=== PATIENT | female | born 1975 | race Caucasian/White ===

== ENCOUNTER 2017-04-03 10:38 | Emergency (ER) | payer BC ==
[~2017-04-03] VITALS: Ht 157.5 cm; Wt 129.9 kg
[2017-04-03 10:54] VITALS: BP 100/67
--- NOTE | 2017-04-03 11:27 | NUR ---
PATIENT AMBUALTED TO BED 3.
--- NOTE | 2017-04-03 11:39 | NUR ---
42/F PRESENT TO ER C/O N/V/D x 4 DAYS. PAIN 8/10 SHARP CONTINOUS NON-RADIATING. PT STATES SHE WAS SEEN IN [facility] ER YESTERDAY AM. HX: NONE MEDS: NONE; DENIES DIARRHEA; SKIN IS PINK/WARM/DRY; AAOX4 WITH EVEN AND STEADY GAIT; LUNGS CLEAR BL; HR EVEN AND REGULAR; PT DENIES ANY FEVER, CP, SOB, OR COUGH AT THIS TIME; PATIENT STATES PAIN OF 8/10 AT THIS TIME; VSS; PATIENT POSITIONED FOR COMFORT; HOB ELEVATED; BEDRAILS UP X2; BED DOWN. ER MD MADE AWARE OF PT STATUS.
[2017-04-03] MEDS ORDERED: oxyCODONE/APAP 5/325 MG 1 TAB TAB PO ONE (11:45)
[2017-04-03] MEDS ORDERED: SUMAtriptan 6 MG/0.5 ML VIAL SUBQ ONE (11:45)
[2017-04-03 12:57] VITALS: BP 123/74
--- NOTE | 2017-04-03 12:57 | NUR ---
Patient discharged with v/s stable. Written and verbal after care instructions given and explained. Patient verbalized understanding. Ambulatory with steady gait. All questions addressed prior to discharge. Advised to follow up with PMD.
== END 2017-04-03 12:57 | disposition home or self-care (01) ==
LOC: MED 10:38
DX: K52.9 Noninfective gastroenteritis and colitis, unspecified (principal); G43.909 Migraine, unspecified, not intractable, without status migrainosus
CPT/HCPCS: 96372; 99283; J3030

== ENCOUNTER 2017-04-05 00:50 | Inpatient (IN) | payer BC ==
[~2017-04-05] VITALS: Ht 157.5 cm; Wt 129.3 kg
[2017-04-05 00:58] VITALS: BP 119/69
--- NOTE | 2017-04-05 03:07 | NUR ---
42Y F BIB FAMILY C/O MID AB PAIN RADIATING TO THE PELVIC X 5 DAYS. PT STATES SHE WAS SEEN HERE AT [place] ON MONDAY AND MONDAY OF THIS PAST WEEK AND RECEIVED PAIN MED AND ANTI DIARRRHEAL MED BUT GOT NO RELIEF. PT STATES SHE IS STILL HAVING DIARRHEA. PT DENIES ANY NAUSEA OR VOMITING. PT AAOX4.
[2017-04-05] MEDS ORDERED: MORPHINE SULFATE 4 MG/ML SYR IVP ONE (03:20)
[2017-04-05] MEDS ORDERED: ONDANSETRON 4 MG/2 ML VIAL IVP ONE (03:20)
[2017-04-05] MEDS ORDERED: NACL 0.9% 1,000 ML IV ONE (03:20)
[2017-04-05] MEDS ORDERED: LEVOFLOXACIN 750 MG/D5W PREMIX 150 ML IV ONE (03:20)
[2017-04-05 03:37] LABS: APPEARANCE,URINE SL CLOUDY (CLEAR); BILIRUBIN,URINE NEGATIVE (NEGATIVE); BLOOD, URINE NEGATIVE (NEGATIVE); COLOR,URINE YELLOW (YELLOW); LEUKOCYTE ESTERASE ,URINE NEGATIVE (NEGATIVE); NITRITE, URINE NEGATIVE (NEGATIVE); UGLUCOSE 2+ (NEGATIVE)
[2017-04-05 03:40] LABS: HEMATOCRIT 43.2 % (36-48); MEAN CORPUSCULAR HEMOGLOBIN 27 pg (27-31); MEAN CORPUSCULAR HGB CONC 33 g/dL (33-37); MEAN CORPUSCULAR VOLUME 84 fL (80-94); PLATELET COUNT (AUTO) 233 K/uL (140-450); RED BLOOD CELL COUNT(AUTO) 5.16 MIL/uL (4.20-5.40); RED CELL DISTRIBUTION WIDTH 13.1 % (11.6-13.7); WHITE BLOOD COUNT (AUTO) 10.4 K/uL (4.8-10.8)
[2017-04-05 03:46] LABS: ANION GAP 12.1 (8-16); CARBON DIOXIDE 26.2 mmol/L (21-32); POTASSIUM 3.3 mmol/L (3.5-5.1)
[2017-04-05 03:48] LABS: EOSINOPHILS % (MANUAL) 1 % (0-4); LYMPHOCYTES % (MANUAL) 16 % (20-46); MONOCYTES % (MANUAL) 8 % (5-12)
[2017-04-05 03:51] LABS: ALBUMIN 2.7 g/dL (3.4-5.0); TOTAL BILIRUBIN 0.4 mg/dL (0.0-1.0)
[2017-04-05 03:59] LABS: RBC,URINE 0-5 (RARE) /HPF (0-5); WBC,URINE 0-5 (RARE) /HPF (0-5)
[2017-04-05] MEDS ORDERED: ONDANSETRON 4 MG/2 ML VIAL IM/IVP PRN (04:55)
[2017-04-05] MEDS ORDERED: DOCUSATE SODIUM 100 MG GELCAP PO PRN (04:55)
[2017-04-05] MEDS ORDERED: MORPHINE SULFATE 2 MG/ML SYR IVP PRN (04:55)
[2017-04-05] MEDS ORDERED: ACETAMINOPHEN 325 MG TAB PO PRN (04:55)
[2017-04-05] MEDS ORDERED: MORPHINE SULFATE 10 MG/ML SYR IVP ONE (05:05)
[2017-04-05 06:33] LABS: PROTHROMBIN TIME 10.6 secs (10.8-13.4)
[2017-04-05 06:43] LABS: CHOL/HDL RATIO 10.1 (1-4.5); FREE T4 (FREE THYROXINE) 1.34 ng/dL (0.76-1.46); PHOSPHORUS 2.7 mg/dL (2.5-4.9); THYROID STIMULATING HORMONE 2.89 uIU/mL (0.34-3.74)
--- NOTE | 2017-04-05 07:10 | NUR ---
Pt report given to CASTILLO TINSLEY . Transfer of care at this time.
--- NOTE | 2017-04-05 07:15 | NUR ---
CALLED TO GIVE REPORT. ALVINA MONK STS TO CALL BACK IN 5 MINS.
--- NOTE | 2017-04-05 07:33 | NUR ---
GAVE REPORT TO ALVINA MYERS. ALVINA MYERS STS TO CALL BACK IN 10 MINS.
--- NOTE | 2017-04-05 07:44 | NUR ---
Patient will be admitted to care of DR TORRES. Admited to TELE. Will go to room 125 B. Belongings list completed. Report to ALVINA MYERS.
[2017-04-05 08:30] VITALS: BP 116/70
[2017-04-05] MEDS: NACL 0.9% 1,000 ML IV SCH ×2 (08:38→20:43)
--- NOTE | 2017-04-05 09:00 | NUR ---
Admitted from ED, with chief complaints of ABDOMINAL PAIN AND DIARRHEA THAT STARTED LAST MONDAY. PT IS AAOX4. NO SOB NOTED. NO C/O PAIN AT THIS TIME. IV TO RT AC PATENT AND INTACT. CHEST CLEAR. ABDOMEN SOFT, BOWEL SOUNDS PRESENT. NO EDEMA NOTED. [place] BITES NOTED ON BLE, OTHERWISE SKIN INTACT. PT I S 42 y/o ,Female, Cooperative,oriented to call light, bed, phone,television, bathroom, smoking policy,visiting hours, procedures, ID bracelet on. Belongings list checked. INSTRUCTED PT TO CALL FOR ASSISTANCE, CALL LIGHT WITHIN REACH, PT VERBALIZED UNDERSTANDING.
--- NOTE | 2017-04-05 09:30 | NUR ---
NPO MAINTAINED, PT VERBALIZED UNDERSTANDING.
--- NOTE | 2017-04-05 10:03 | NUR ---
PATIENT HAS BEEN SCREENED AND CATEGORIZED HIGH NUTRITION RISK. PATIENT WILL BE SEEN WITHIN 1-2 DAYS OF ADMISSION. 04/05/17-04/06/[address]
[2017-04-05] MEDS ORDERED: POTASSIUM CHLORIDE 40 MEQ, LIDOCAINE 1% 25 MG in NACL 0.9% 250 ML IV ONE (11:20)
--- NOTE | 2017-04-05 11:30 | NUR ---
STOOL SPECIMEN COLLECTED AND SENT TO LAB FOR C-DIFF, STOOL CULTURE, WBC AND OCCULT BLOOD.
[2017-04-05 12:00] VITALS: BP 130/67
[2017-04-05 16:00] VITALS: BP 115/63
--- NOTE | 2017-04-05 17:00 | NUR ---
TELE BOX REMOVED. PT IS TRANSFERRED TO MED SURG STATUS.
--- NOTE | 2017-04-05 17:30 | NUR ---
STOOL SPECIMEN COLLECTED AND SENT TO LAB FOR OCCULT BLOOD.
--- NOTE | 2017-04-05 18:00 | NUR ---
PT HAD TOTAL OF 4 EPISODES OF LOOSE STOOLS THROUGH OUT THE SHIFT, SMALL LIQUID BROWN STOOLS NOTED.
--- NOTE | 2017-04-05 18:57 | NUR ---
PT AWAKE. NO SOB NOTED. NO C/O OF PAIN AT THIS TIME. FAMILY AT THE BEDSIDE VISITING. WILL ENDORSE TO NEXT SHIFT NURSE FOR CONTINUITY OF CARE.
--- NOTE | 2017-04-05 19:30 | NUR ---
RECEIVED REPORT AT PT BEDSIDE. PT IN STABLE CONDITION, AMBULATORY WITH STEADY GAIT. PT IS AAOX4, ON ROOM AIR WITH NO SIGNS OF RESPIRATORY DISTRESS. PT HAS A 20 GAUGE IV ON HER RIGHT AC. SKIN INTACT. NO SIGNS OF DISTRESS NOTED. BED IN LOW POSITION, CALL LIGHT WITHIN REACH. WILL CONTINUE TO MONITOR.
[2017-04-05 19:46] VITALS: BP 131/86
[2017-04-05] MEDS ORDERED: KETOROLAC 30 MG/ML VIAL IM PRN (20:10)
[2017-04-05] MEDS: HYDROcodone/APAP 7.5/325 MG 1 TAB PO PRN (20:40)
[2017-04-05] MEDS: metroNIDAZOLE 500 MG/NS PREMIX 100 ML IV SCH (20:41)
--- NOTE | 2017-04-05 20:45 | NUR ---
ADMINISTERED SCHEDULED MEDICATIONS, PT TOLERATED WELL. NO SIGNS OF DISTRESS NOTED. BED IN LOW POSITION, CALL LIGHT WITHIN REACH. WILL CONTINUE TO MONITOR.
[2017-04-05] MEDS ORDERED: LORazepam 1 MG TAB PO PRN (21:00)
--- NOTE | 2017-04-05 22:00 | NUR ---
PT REQUESTED MEDICATION TO HELP HER SLEEP. ADMINISTERED ATIVAN PRN SLEEPLESSNESS. PT TOLERATED WELL. NO SIGNS OF DISTRESS NOTED. BED IN LOW POSITION, CALL LIGHT WITHIN REACH. WILL CONTINUE TO MONITOR.
--- NOTE | 2017-04-06 00:15 | NUR ---
PT STABLE, SLEEPING. VITAL SIGNS WITHIN NORMAL LIMITS. NO SIGNS OF DISTRESS NOTED. BED IN LOW POSITION, CALL LIGHT WITHIN REACH. WILL CONTINUE TO MONITOR.
--- NOTE | 2017-04-06 01:25 | NUR ---
PT STILL SLEEPING,NO SIGNS OF DISTRESS NOTED. BED IN LOW POSITION, CALL LIGHT WITHIN REACH. WILL CONTINUE TO MONITOR.
--- NOTE | 2017-04-06 03:24 | NUR ---
PT REQUESTED SEQUENTIALS BE REMOVED SO THAT SHE COULD AMBULATE TO THE RESTROOM, AND WERE APPLIED AGAIN ONCE PT HAD RETURNED TO BED. NO SIGNS OF DISTRESS NOTED. BED IN LOW POSITION, CALL LIGHT WITHIN REACH. WILL CONTINUE TO MONITOR.
[2017-04-06 04:30] VITALS: BP 103/59
--- NOTE | 2017-04-06 05:30 | NUR ---
PT IN STABLE CONDITION, NO SIGNS OF DISTRESS NOTED. FLUSHED IV LINE, PT TOLERATED WEL. BED IN LOW POSITION, CALL LIGHT WITHIN REACH. WILL CONTINUE TO MONITOR.
[2017-04-06] MEDS: metroNIDAZOLE 500 MG/NS PREMIX 100 ML IV SCH ×3 (05:47→20:43)
[2017-04-06 06:01] LABS: BASOPHILS # (AUTO) 0.1 K/uL (0.00-0.22); BASOPHILS % (AUTO) 0.5 % (0.0-2.0); EOSINOPHILS # (AUTO) 0.2 K/uL (0-0.4); EOSINOPHILS % (AUTO) 1.5 % (0.0-4.0); HEMATOCRIT 36.7 % (36-48); HEMOGLOBIN 12.4 g/dL (12.0-16.0); LYMPHOCYTES % (AUTO) 19.1 % (20.5-51.1); MEAN CORPUSCULAR HEMOGLOBIN 29 pg (27-31); MEAN CORPUSCULAR HGB CONC 34 g/dL (33-37); MEAN CORPUSCULAR VOLUME 85 fL (80-94); MONOCYTES # (AUTO) 1.1 K/uL (0.8-1.0); MONOCYTES % (AUTO) 10.6 % (1.7-9.3); NEUTROPHILS % (AUTO) 68.3 % (42.2-75.2); PLATELET COUNT (AUTO) 224 K/uL (140-450); RED BLOOD CELL COUNT(AUTO) 4.32 MIL/uL (4.20-5.40); RED CELL DISTRIBUTION WIDTH 13.7 % (11.6-13.7); WHITE BLOOD COUNT (AUTO) 10.4 K/uL (4.8-10.8)
[2017-04-06 06:42] LABS: PHOSPHORUS 2.7 mg/dL (2.5-4.9)
[2017-04-06 07:08] LABS: ANION GAP 13.9 (8-16); CARBON DIOXIDE 23.4 mmol/L (21-32); CREATININE 0.8 mg/dL (0.6-1.3); POTASSIUM 3.3 mmol/L (3.5-5.1)
--- NOTE | 2017-04-06 07:25 | NUR ---
ENDORSED PT TO DAY SHIFT RN FOR CONTINUITY OF CARE. PT IN STABLE CONDITION.
--- NOTE | 2017-04-06 07:26 | NUR ---
RECEIVED REPORT FROM THE [employer] ANALYSIS TECHNICIAN NURSE AT BEDSIDE FOR CONTINUITY OF CARE. PT IS AWAKE AND ORIENTED. INTRODUCED MYSELF AND UPDATED THE BOARD. PT IS AMBULATING IN THE ROOM. OV ON R AC 20G NS AT 60ML. CURRENTLY FLAGYL HANGING. IV PUMP ALARM ON. WILL STOP IT FOR NOW AND WILL COME BACK TO FLUSH. PT C/O PAIN, ABD PAIN 6/10 WILL BE BACK WITH PAIN MEDS. SKIN INTACT. WILL CONTINUE TO MONITOR PT.
[2017-04-06 08:00] VITALS: BP 127/75
[2017-04-06 08:20] LABS: T4 (THYROXINE) 8.8 ug/dL (4.5-12.0)
[2017-04-06] MEDS: LEVOFLOXACIN 500 MG/D5W PREMIX 100 ML IV SCH (08:28)
[2017-04-06] MEDS: HYDROcodone/APAP 7.5/325 MG 1 TAB PO PRN ×3 (08:28→20:42)
--- NOTE | 2017-04-06 08:31 | NUR ---
PT KEPT MOVING ARM AND IV PUMP WAS BEEPING, FLAGYL (PREVIOUSLY HUNG BY FOOD SERVICE SALES REPRESENTATIVES) STILL NEEDING TO BE INFUSED. PUT AN ARM BOARD ON THE ARM. INFUSING FINE NOW. WILL FINISH UP THE FLAGYL AND START THE LEVAQUIN. ADMINISTERED A NORCO FOR PAIN 12/17. PT TOLERATED WELL. WILL CONTINUE TO MONITOR.
[2017-04-06] MEDS ORDERED: POTASSIUM CHLORIDE 10 MEQ TABER PO SCH (09:13)
--- NOTE | 2017-04-06 10:03 | NUR ---
PT TOLERATED FLAGYL WELL. HUNG THE LEVAQUIN. AFTER LEVAQUIN, PT WOULD LIKE TO TAKE A SHOWER. REPLENISHING K LEVEL OF 3.3 W/ 40 MEQ OF KDUR. PT TOLERATED WELL. SIG OTHER IS HERE AT BEDSIDE. WILL CONTINUE TO MONITOR PT.
--- NOTE | 2017-04-06 10:40 | NUR ---
04/06/17 RD INITIAL ASSESSMENT COMPLETED PLEASE REFER TO NUTRITION ASSESSMENT UNDER CARE ACTIVITY FOR ESTIMATED NUTRITIONAL NEEDS. 1. WHEN MEDICALLY FEASIBLE, INITIATE PO DIET TO START ON CLEAR LIQUID DIET, ADVANCE TOLERATED TO 60G CONSISTENT CARBOHYDRATE DIET 2. PROVIDE NUTRITION THERAPY EDUCATION NEEDED 3. RD TO FOLLOW-UP 2-3 DAYS, HIGH RISK ABDULLAHI NICHOLS RD
--- NOTE | 2017-04-06 11:07 | NUR ---
PT WAITING TO TAKE SHOWER. PIERRE JUST ABOUT TO FINISH. DR Rodrick RODRIGUEZ IS HERE FOR GI CONSULT. WILL WAIT UNTIL SHE IS SEEN. ONCE SHE IS SEEN, WILL DC IV FLUIDS SO SHE CAN TAKE SHOWER.
--- NOTE | 2017-04-06 12:00 | NUR ---
DR RODRIGUEZ CAME TO SEE PT. ORDERED FULL LIQ DIET FOR TODAY. WILL MONITOR HOW SHE DOES. IF WELL, WILL INCREASE DIET TOMORROW AND POSSIBLY D/C TOMORROW.
--- NOTE | 2017-04-06 12:15 | NUR ---
PT TAKING SHOWER. BOATING SAFETY OFFICER CHANGING BED LINENS.
--- NOTE | 2017-04-06 13:16 | NUR ---
ADMINISTERED JOHNNY. PT VISITING WITH FAMILY. NO SIGNS OF DISTRESS. WILL CONTINUE TO MONITOR PT.
--- NOTE | 2017-04-06 13:59 | NUR ---
PT TRIED SOME OF HER DIET. C/O ABDOMINAL PAIN. REQUESTED NORCO. ADMINISTERED NORCO. PT IS TOLERATED WELL. WILL CONTINUE TO MONITOR PT.
[2017-04-06] MEDS: NACL 0.9% 1,000 ML IV SCH (14:01)
[2017-04-06 16:00] VITALS: BP 124/78
--- NOTE | 2017-04-06 16:00 | NUR ---
PT IS RESTING COMFORTABLY. FAMILY AT BEDSIDE.
--- NOTE | 2017-04-06 18:00 | NUR ---
PT RESTING IN BED. C/O ABD DISCOMFORT. IV FLUIDS D/C'D AT PT'S REQUEST. PT IS DRINKING WATER. WILL RECONNECT WHEN SHE HAS ABX SCHEDULED. NEED TO USE ARM BOARD D/T IV IN AC.
--- NOTE | 2017-04-06 19:15 | NUR ---
ENDORSED PT TO THE [employer] SURFACE HEATER OPERATOR NURSE AT BEDSIDE FOR CONTINUITY OF CARE. PT IS IN STABLE CONDITION.
--- NOTE | 2017-04-06 19:16 | NUR ---
RECEIVED REPORT AT PT BEDSIDE FROM DAY SHIFT RN. PT IN STABLE CONDITION, AMBULATORY WITH STEADY GAIT. PT IS AAOX4, ON ROOM AIR WITH NO SIGNS OF RESPIRATORY DISTRESS. PT HAS A 20 GAUGE IV ON HER RIGHT AC SL AT THE MOMENT. SKIN INTACT. NO SIGNS OF DISTRESS NOTED. PT DENIES PAIN AT THIS TIME. DISCUSSED PLAN OF CARE WITH PT, PT VERBALIZED UNDERSTANDING. BED IN LOW POSITION, CALL LIGHT WITHIN REACH. WILL CONTINUE TO MONITOR.
--- NOTE | 2017-04-06 20:45 | NUR ---
ADMINISTERED SCHEDULED IV ABX, AND NORCO FOR PT C/O ABD PAIN. PT TOLERATED WELL. PT ASKED FOR SLEEPING PILL, BUT NONE AVAILABLE. WILL TALK TO DR ABOUT ORDERING MEDICATION TO HELP PT SLEEP. BED IN LOW POSITION, CALL LIGHT WITHIN REACH. WILL CONTINUE TO MONITOR.
--- NOTE | 2017-04-06 20:51 | NUR ---
SPOKE TO DR SIMMONS ABOUT PT REQUEST FOR SLEEPING PILL. DR SIMMONS WILL PUT IN ORDER.
[2017-04-06] MEDS ORDERED: LORazepam 1 MG TAB PO PRN (21:00)
--- NOTE | 2017-04-06 21:30 | NUR ---
ADMINISTERED ORDERED PRN ATIVAN, PT TOLERATED WELL. BED IN LOW POSITION, CALL LIGHT WITHIN REACH. WILL CONTINUE TO MONITOR.
--- NOTE | 2017-04-06 23:47 | NUR ---
PT IN STABLE CONDITION, VITAL SIGNS WITHIN NORMAL LIMITS. NO SIGNS OF DISTRESS NOTED. BED IN LOW POSITION, CALL LIGHT WITHIN REACH. WILL CONTINUE TO MONITOR.
[2017-04-07] VITALS: BP 125/82
--- NOTE | 2017-04-07 01:35 | NUR ---
PT SLEEPING, IN STABLE CONDITION. NO SIGNS OF DISTRESS NOTED. BED IN LOW POSITION, CALL LIGHT WITHIN REACH. WILL CONTINUE TO MONITOR.
--- NOTE | 2017-04-07 03:40 | NUR ---
PT STILL SLEEPING, IN STABLE CONDITION. NO SIGNS OF DISTRESS NOTED. BED IN LOW POSITION, CALL LIGHT WITHIN REACH. WILL CONTINUE TO MONITOR.
[2017-04-07] MEDS: metroNIDAZOLE 500 MG/NS PREMIX 100 ML IV SCH ×2 (04:49→13:00)
--- NOTE | 2017-04-07 05:37 | NUR ---
PT STILL SLEEPING. NO SIGNS OF DISTRESS NOTED. BED IN LOW POSITION, CALL LIGHT WITHIN REACH. WILL CONTINUE TO MONITOR.
[2017-04-07 06:28] LABS: BASOPHILS # (AUTO) 0.1 K/uL (0.00-0.22); EOSINOPHILS # (AUTO) 0.2 K/uL (0-0.4); EOSINOPHILS % (AUTO) 1.9 % (0.0-4.0); HEMATOCRIT 35.9 % (36-48); HEMOGLOBIN 12.2 g/dL (12.0-16.0); LYMPHOCYTES # (AUTO) 2.4 K/uL (2.5-16.5); LYMPHOCYTES % (AUTO) 19.9 % (20.5-51.1); MEAN CORPUSCULAR HEMOGLOBIN 29 pg (27-31); MEAN CORPUSCULAR HGB CONC 34 g/dL (33-37); MEAN CORPUSCULAR VOLUME 84 fL (80-94); MONOCYTES # (AUTO) 0.9 K/uL (0.8-1.0); MONOCYTES % (AUTO) 7.5 % (1.7-9.3); NEUTROPHILS # (AUTO) 8.4 K/uL (1.8-7.7); NEUTROPHILS % (AUTO) 69.7 % (42.2-75.2); PLATELET COUNT (AUTO) 277 K/uL (140-450); RED BLOOD CELL COUNT(AUTO) 4.27 MIL/uL (4.20-5.40); RED CELL DISTRIBUTION WIDTH 13.4 % (11.6-13.7)
[2017-04-07 06:35] LABS: ANION GAP 11.2 (8-16); CARBON DIOXIDE 25.2 mmol/L (21-32); CREATININE 0.8 mg/dL (0.6-1.3); POTASSIUM 3.4 mmol/L (3.5-5.1)
[2017-04-07 06:46] LABS: MAGNESIUM 1.8 mg/dL (1.8-2.4)
[2017-04-07] MEDS: NACL 0.9% 1,000 ML IV SCH (06:55)
--- NOTE | 2017-04-07 07:30 | NUR ---
RECEIVED PATIENT REPORT AT BEDSIDE. PATIENT AWAKE, ALERT AND ORIENTED. NO S/S OF DISTRESS NOTED. NO C/O PAIN AT THIS TIME. IV LINE NOTED TO THE RIGHT WRIST. IVF INFUSING WELL. BED LOWERED WITH CALL LIGHT WITHIN REACH. WILL CONTINUE TO MONITOR
--- NOTE | 2017-04-07 07:39 | NUR ---
ENDORSED PT TO DAY SHIFT RN FOR CONTINUITY OF CARE. PT IN STABLE CONDITION.
[2017-04-07 08:00] VITALS: BP 106/56
[2017-04-07] MEDS: LEVOFLOXACIN 500 MG/D5W PREMIX 100 ML IV SCH (09:02)
[2017-04-07] MEDS ORDERED: LORazepam 1 MG TAB PO PRN (10:14)
[2017-04-07] MEDS ORDERED: CIPR500T4 PO (10:20)
[2017-04-07] MEDS ORDERED: METR250T2 PO (10:20)
[2017-04-07] MEDS ORDERED: LACT10CA1 PO (10:20)
[2017-04-07] MEDS ORDERED: POTASSIUM CHLORIDE 10 MEQ TABER PO SCH (11:00)
[2017-04-07] MEDS ORDERED: metroNIDAZOLE 500 MG TAB PO SCH (12:00)
--- NOTE | 2017-04-07 12:30 | NUR ---
PATIENT ATE PEACHES AND TOLERATED IT WELL. MADE DR MAHMOOD AWARE. PATIENT CLEARED FOR D/C
--- NOTE | 2017-04-07 13:55 | NUR ---
PATIENT DISCHARGED TO HOME. DISCHARGE INSTRUCTIONS AND DISCHARGE PRESCRIPTIONS GIVEN. PATIENT VERBALIZED UNDERSTANDING. IV LINE DISCONTINUED. PATIENT LEFT WITH ALL HER BELONGINGS AND DISCHARGE PAPERS. PATIENT LEFT IN STABLE CONDITION.
== END 2017-04-07 13:55 | disposition home or self-care (01) | DRG 391 ==
LOC: MED 00:50 → MMU 05:01
PROVIDERS: ADMIT Family Medicine Sports Medicine; ATTEND Family Medicine Sports Medicine
DX: A08.4 Viral intestinal infection, unspecified (principal); E43 Unspecified severe protein-calorie malnutrition; K76.0 Fatty (change of) liver, not elsewhere classified; Z68.43 Body mass index [BMI] 50.0-59.9, adult; E78.1 Pure hyperglyceridemia; E78.5 Hyperlipidemia, unspecified; K58.0 Irritable bowel syndrome with diarrhea; E11.9 Type 2 diabetes mellitus without complications; E66.01 Morbid (severe) obesity due to excess calories; E87.6 Hypokalemia; Z90.722 Acquired absence of ovaries, bilateral
CPT/HCPCS: 36415; 76705; 80048; 80053; 81001; 82150; 82272; 83036; 83690; 83735; 84100; 84436; 84439; 84443; 84479; 84702; 85025; 85610; 85730; 87045; 87070; 87081; 87086; 89055; 96365; 96366; 96375; 96376; 99285; J1956; J2001; J2270; J2405; J3480; J3490; J7030; Q0092; Q9967

== ENCOUNTER 2021-05-12 05:13 | Emergency (ER) | payer BC ==
[~2021-05-12] VITALS: Ht 157.5 cm; Wt 113.4 kg
[~2021-05-12 05:13] MED LIST: CIPR500T4 PO; LACT10CA1 PO; METR-520 PO
[2021-05-12 05:18] VITALS: BP 145/85
--- NOTE | 2021-05-12 05:18 | NUR ---
PT AMBULATED TO BED 09.
--- NOTE | 2021-05-12 05:25 | NUR ---
PATIENT WITH COMPLAINT OF EDEMA ON HER LEFT SIDE OF HER LIP AND CHEEK, ALSO COMPLAINTS OF NUMBNESS ON HER LEFT ARM AND HAND. HAS BORDELINE DIABETES, TAKES METFORMIN, LIPITOR AND VITAMIN D AT HOME. PRIOR SURGICAL HISTORY INCLUDES OVARY REMOVAL. PATIENT DENIES ANY PAIN. NO SIGNS OF ACUTE DISTRESS AT THIS TIME. NEUROLOGICAL ASSESSMENT WITHIN NORMAL LIMITS. VSS
--- NOTE | 2021-05-12 05:27 | NUR ---
DR. BEGUM AT BEDSIDE EVALUATING PT.
[2021-05-12 06:05] VITALS: BP 145/85
== END 2021-05-12 06:05 | disposition home or self-care (01) ==
LOC: MED 05:13
DX: R20.2 Paresthesia of skin (principal)
CPT/HCPCS: 93005; 99283